=== PATIENT | female | born 2005 | race Caucasian/White ===

== ENCOUNTER 2024-03-18 11:34 | Outpatient (AMB) | payer BC, SELFPAY ==
--- NOTE | 2024-03-18 11:39 | A.OFFPC_ITS ---
Vital Signs 03/18/24 11:48 Height 5 ft 5.94 in Weight 165 lb 8 oz BMI 26.8 BP 124/72 Blood Pressure Location Lt brachial Position Sitting Respiration 12 Pulse 73 Pulse Source Pulse Oximeter Temp 98.6 F Temp Source Oral Pulse Oximetry (%) 98 Oxygen Delivery Method Room Air Intake Visit Reasons: requesting pe Intake Note: New patient visit Financial Reporting Analyst Required: No Is last menstrual period known: Yes Last menstrual period: 02/14/24 Allergies No Known Allergies Allergy (Verified 03/18/24 11:46) Tobacco use date assessed: 03/18/24 Dental Screening Dental Screen Date: 03/18/24 Did you have a dental visit in the last 12 months?: Yes Did you have a dental problem in the last 6 months where you did not have access to dental care?: No Was dental information given to patient?: Patient has dentist HPI HPI Comments History of Present Illness Details This is a 18-year-old female with a past medical history of exercise-induced asthma and acne presenting to [facility]. She transferred from [facility]. She is followed by [facility]. She is on doxycycline and topical Retin-A. Takes Karla as needed for seasonal allergies. She uses a rescue inhaler once or twice per year for exercise-induced asthma. Agreeable to screening labs including testing for HIV and other STIs. Patient is getting her 2nd hepatitis-B vaccine today. She is getting vaccinated because she was negative on titer testing for school. 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 She used to be on an oral contraceptive pill, but it caused mood swings. Referred to OBGYN for contraception consult. ROS: Constitutional: No unexplained weight loss, fever, chills, fatigue or night sweats. Eyes: No vision changes, blurry vision, double vision, eye pain, eye redness, eye discharge. ENT: No hearing loss, sneezing, congestion, runny nose or sore throat. Respiratory: No shortness of breath, cough or sputum production. Cardiovascular: No chest pain, chest pressure or chest discomfort. No palpitatio ns or pedal edema. Gastrointestinal: No anorexia, nausea, vomiting or diarrhea. No abdominal pain or blood in stool. Genitourinary: No dysuria, hematuria, urinary frequency. Neurologic: No headache, dizziness, syncope, unilateral weakness, ataxia, numbness or tingling in the extremities. Musculoskeletal: No muscle pain, back pain, joint pain or swelling. Hematologic/Lymphatics: No bleeding or bruising. No painful lymph nodes. Skin: No itching. Endocrine: No cold or heat intolerance. No polyuria or polydipsia. Psychiatric: No depression or anxiety. No SI/HI. Physical exam: Constitutional: Alert, in no distress. Head: Normocephalic. Eyes: Pupils are equal, round and reactive to light. Extraocular muscles intact. Ear, Nose and Throat: Canals clear. TMs normal. Normal nasal mucosa. No nasal d ischarge. No oral lesions. Neck: Supple, Full range of motion. No lymphadenopathy. No palpable thyroid masses. Respiratory: Clear to auscultation. Cardiovascular: S1 S2 regular. No murmurs. Gastrointestinal: Abdomen soft, non-tender, non-distended. Normal bowel sounds. No palpable masses. Neurologic: No focal neurological deficits. Symmetric patellar reflexes. Moves all extremities spontaneously. Sensation intact bilaterally. Skin: Acneiform lesions on face. Musculoskeletal: No gross deformities. Normal range of motion. Extremities: Warm and well perfused. No clubbing, cyanosis or edema. 3+ p eripheral pulses bilaterally. Psychiatric: Normal mood and affect [facility] Medical History (Updated 03/18/24 @ 13:20 by KANCHAN Page) Exercise-induced asthma Acne Routine physical examination Asthma Surgical History (Updated 03/18/24 @ 11:59 by KANCHAN Page) [place] teeth extracted Family History (Updated 03/18/24 @ 12:00 by KANCHAN Page) Father HTN (hypertension) Hypercholesteremia Cardiovascular disease Atrial fibrillation Paternal Grandmother Thyroid disorder Maternal Grandfather Liver cancer Social History (Updated 03/18/24 @ 11:52 by Angeline Mcmillan CMA) Housing: House Patient Tobacco Use Status: Never used Tobacco e-Cigarette/Vaping Use: Never Used Second Hand Smoke Exposure: No service: No Current occupational status: employed and student Current occupation: bench technician. PCT at [employer] Current occupational exposures/hazards: No Cognitive needs: No Hearing needs: No Vision needs: No Female Reproductive History Menstrual Date of last menstrual period: 02/14/24 Questionnaire PHQ-9 Over the last 2 weeks, how often have you been bothered by any of the following problems? 1. Little interest or pleasure in doing things: not at all 2. Feeling down, depressed, or hopeless: not at all 3. Trouble falling or staying asleep, or sleeping too much: several days 4. Feeling tired or having little energy: not at all 5. Poor appetite or overeating: not at all 6. Feeling bad about yourself - or that you are a failure or have let yourself or your family down: not at all 7. Trouble concentrating on things, such as reading the newspaper or watching television: not at all 8. Moving or speaking so slowly that other people could have noticed. Or the opposite - being so fidgety or restless that you have been moving around a lot more than usual: not at all 9. Thoughts that you would be better off or of hurting yourself in some way: not at all Total score: 1 Depression Screening Interpretation: Negative Depression Screening Done: Yes 75717 - PHQ-9 Billing: Yes Source: Developed by Drs. Bonilla Ojeda, Kylah Milian, Sae Irwin and colleagues, with an educational bayron from [employer]. Thrive Questionnaire Date Thrive assessed: 03/18/24 I am a: Patient What is your living situation today?: I have a steady place to live Within the past 12 months, did the food you bought not last and you didn't have the money to get more?: Never true Within the past 12 months, did you worry whether your food would run out before you got money to buy more?: Never true Do you have trouble paying for medicines?: No Do you have trouble getting transportation to medical appointments?: No Do you have trouble paying your heating and electricity bill?: No Do you have trouble taking care of your child, family member or friend?: No Do you have trouble with day-to-day activities such as bathing, preparing meals, shopping, managing finances, etc.?: No Are you currently unemployed and looking for a job?: No Are you interested in more education?: No Please select the resources that you would like help with: None Currently or been in a relationship where the following occur: No concerns reported THRIVE Score: 0 AUDIT C Alcohol Use Questionnaire (AUDIT-C) 1. How often do you have a drink containing alcohol?: Monthly or less 2. How many drinks containing alcohol do you have on a typical day when you are drinking?: 1 or 2 3. How often do you have six or more drinks on one occasion?: Never Total Score: 1 DERECK-7 AMB Questionnaire DERECK-7 Date DERECK - 7 assessed: 03/18/24 Feeling nervous, anxious, or on edge: 2 = More than half the days Not being able to stop or control worryin = Nearly every day Worrying too much about different things: 3 = Nearly every day Trouble relaxin = More than half the days Being so restless that it is hard to sit still: 2 = More than half the days Becoming easily annoyed or irritable: 3 = Nearly every day Feeling afraid as if something awful might happen: 3 = Nearly every day Total DERECK-7 score (0-4 normal; 5-9 mild; 10-14 moderate; 15-21 severe): 18 Source: Developed by Drs. Bonilla Ojeda, Kylah Milian, Sea Irwin and colleagues, with an educational bayron from [employer]. DERECK-7 Assessment Billing DERECK-7 Assessment Tool: DERECK-7 Assessment 34833 Physical exam (Primary Care) Vital Signs: Last Vital Signs Temp 98.6 F 03/18/24 11:48 Pulse 73 03/18/24 11:48 Resp 12 03/18/24 11:48 BP 124/72 03/18/24 11:48 Pulse Ox 98 03/18/24 11:48 Oxygen Delivery Method Room Air 03/18/24 11:48 BMI result Body Mass Index 26.8 Tobacco/Smoking Status: Tobacco use Status Tobacco use date assessed 03/18/24 03/18/24 11:50 Patient Tobacco Use Status Never used Tobacco 03/18/24 11:52 e-Cigarette/Vaping Use Never Used 03/18/24 11:52 PHQ-9: PHQ-9 Score PHQ-9: Total score 1 03/18/24 12:15 Depression Screening Interpretation: Negative Thrive Assessment: Date of Thrive Assessment Date Thrive assessed 03/18/24 03/18/24 12:07 Currently or been in a relationship where the following occur: No concerns reported Assessment and Plan Assessment & Plan (1) Routine physical examination: Code(s): Z00.00 - Encounter for general adult medical examination without abnormal findings Plan: Patient is seen today for a routine physical. As part of this visit we reviewed the following issues, which are considered and essential part of preventative health in this age group: - Breast Cancer screening - Annual Station Cleaning Porter exam - Blood pressure screening - Cholesterol screening - Osteoporosis prevention including calcium/vitamin D intake, weight bearing exercise & smoking cessation - Nutritional and exercise counseling - Counseling of injury prevention including fire prevention, smoke alarms and seat belt usage - Screening for depression - Prevention of and/or testing for infectious diseases - Education about skin cancer - Recommendations about immunizations - Recommendation of an eye exam - Screening for substance abuse - Genetic cancer risk screening Return in 1 year for physical exam. Orders: Orders Hepatitis B Profile Today L70.9 - Acne, unspecified, Z00.00 - Encounter for general adult medical examination without abnormal findings, Z01.84 - Encounter for antibody response examination, Z11.3 - Encounter for screening for infections with a predominantly sexual mode of transmission, Z13.6 - Encounter for screening for cardiovascular disorders Syphilis Screen Today L70.9 - Acne, unspecified, Z00.00 - Encounter for general adult medical examination without abnormal findings, Z01.84 - Encounter for an tibody response examination, Z11.3 - Encounter for screening for infections with a predominantly sexual mode of transmission, Z13.6 - Encounter for screening for cardiovascular disorders CT NG by PCR Today L70.9 - Acne, unspecified, Z00.00 - Encounter for general adult medical examination without abnormal findings, Z01.84 - Encounter for antibody response examination, Z11.3 - Encounter for screening for infections with a predominantly sexual mode of transmission, Z13.6 - Encounter for screening for cardiovascular disorders Comprehensive Met. Panel Today L70.9 - Acne, unspecified, Z00.00 - Encounter for general adult medical examination without abnormal findings, Z01.84 - Encounter for antibody response examination, Z11.3 - Encounter for screening for infections with a predominantly sexual mode of transmission, Z13.6 - Encounter for screening for cardiovascular disorders Lipid Panel Today L70.9 - Acne, unspecified, Z00.00 - Encounter for general adult medical examination without abnormal findings, Z01.84 - Encounter for antibody response examination, Z11.3 - Encounter for screening for infections with a predominantly sexual mode of transmission, Z13.6 - Encounter for screening for cardiovascular disorders Hepatitis C Antibody Today L70.9 - Acne, unspecified, Z00.00 - Encounter for general adult medical examination without abnormal findings, Z01.84 - Encounter for antibody response examination, Z11.3 - Encounter for screening for infections with a predominantly sexual mode of transmission, Z13.6 - Encounter for screening for cardiovascular disorders HIV Ab/Ag Today L70.9 - Acne, unspecified, Z00.00 - Encounter for general adult medical examination without abnormal findings, Z01.84 - Encounter for antibody response examination, Z11.3 - Encounter for screening for infections with a predominantly sexual mode of transmission, Z13.6 - Encounter for screening for cardiovascular disorders Complete Blood Count no Diff Today L70.9 - Acne, unspecified, Z00.00 - Encounter for general adult medical examination without abnormal findings, Z01.84 - Encounter for antibody response examination, Z11.3 - Encounter for screening for infections with a predominantly sexual mode of transmission, Z13.6 - Encounter for screening for cardiovascular disorders Referrals ENVIRONMENTAL ENGINEER SCIENTIST Referral Z30.9 - Encounter for contraceptive management, unspecified Coding Level of Care Code New Pt Prev Care 18-39yr([id number] Diagnoses Routine physical examination Z00.00 Additional Codes DERECK-7 Assessment Billing - DERECK-7 Assessment Tool: DERECK-7 Assessment [id number] ([id number])
[2024-03-18 11:48] VITALS: BP 124/72; PULSE 73; RESP 12; TEMP 37; O2SAT 98; BMI 26.8
== END 2024-03-18 12:17 | disposition home or self-care (01) ==
PROVIDERS: PCP Nurse Practitioner Family; Visit Provider Physician Assistant Medical
DX: Z00.00 Encounter for general adult medical examination without abnormal findings (principal)
CPT/HCPCS: 99385

== ENCOUNTER 2024-07-01 08:49 | Outpatient (REF) | payer BC, SELFPAY ==
[2024-07-01 10:32] LABS: Hematocrit 45.4 % (37.0-47.0); Mean Corpuscular Hemoglobin 27.9 pg (27.0-33.0); Mean Corpuscular Volume 84.5 fL (80.0-98.0); Mean Platelet Volume 9.7 fL (9.4-12.3); Platelet Count 288 X10*3/uL (160-400); Red Blood Count 5.37 X10*6/uL (4.20-5.50); Red Cell Distribution Width 12.3 % (11.0-16.0); White Blood Count 5.6 X10*3/uL (4.8-10.8)
[2024-07-01 11:12] LABS: Syphilis Screen Nonreactive (Nonreactive)
[2024-07-01 11:16] LABS: HIV AB/AG Nonreactive (Nonreactive); HIV Num 1 0.06 S/CO (0.00-0.99); ~HepC Num1 0.14 S/CO (0.00-0.79); ~Hepatitis C Antibody Nonreactive (Nonreactive)
[2024-07-01 11:26] LABS: Alanine Aminotransferase 29 U/L (0-31); Albumin Level 4.5 g/dL (3.5-5.0); Alkaline Phosphatase 80 U/L (39-117); Anion Gap 12 (12-20); Aspartate Amino Transferase 27 U/L (5-31); Bilirubin Total 0.5 mg/dL (0.0-1.0); Blood Urea Nitrogen 11 mg/dL (9-16); Calcium 9.4 mg/dL (8.4-10.2); Carbon Dioxide 26 mmol/L (22-29); Chloride 106 mmol/L (96-108); Cholesterol 153 mg/dL (<200); Estimated Glomerular Filt Rate > 60; Glucose Random 83 mg/dL (60-115); HDL Cholesterol 57 mg/dL (>40); LDL Cholesterol Calculated 85 mg/dL (<100); Potassium 3.9 mmol/L (3.3-5.1); Sodium 140 mmol/L (135-145); Total Protein 7.3 g/dL (6.5-8.0); Triglycerides 55 mg/dL (<150)
[2024-07-04 01:55] LABS: Hepatitis BE Antibody NON-REACTIVE (NON-REACTIVE)
== END 2024-07-01 08:50 | disposition home or self-care (01) ==
LOC: HO.HMGCLDS 08:49
PROVIDERS: PCP Physician Assistant Medical; Visit Provider Physician Assistant Medical
DX: Z00.00 Encounter for general adult medical examination without abnormal findings (principal); Z01.84 Encounter for antibody response examination; Z13.6 Encounter for screening for cardiovascular disorders; L70.9 Acne, unspecified; Z11.3 Encounter for screening for infections with a predominantly sexual mode of transmission
CPT/HCPCS: 36415; 80053; 80061; 85027; 86707; 86780; 86803; 87389

== ENCOUNTER 2024-09-16 11:17 | Outpatient (REF) | payer BC, SELFPAY ==
--- OUTSIDE RECORDS SUMMARY | 2024-09-16 13:00 | XMS_ITS | Encounter Summary ---
Author Organization [facility] Address [address] [place] [address] Phone Care Team Providers Care Buttonhole Maker Name Role Phone Carmen Del Toro MD Primary Care Provider [phone] Reason for Visit * Reason Comments Med Refill Encounter Details Date Type Department Care Team ([facility] st Contact Info) Description 08/30/2021 Refill [facility] [address] [place] [address] Sandra Chisholm MD [address] [facility] [address] [place] [address] Encounter for surveillance of contraceptive pills Social History Tobacco Use Types Packs/Day Years Used Date Smoking Tobacco: Never Assessed Comments Unknown Sex and Gender Information Value Date Recorded Sex Assigned at Female 01/18/2022 4:53 PM EDT Legal Sex Female 2:11 PM EDT Gender Identity Female 01/18/2022 4:53 PM EDT Sexual Orientation Straight 01/18/2022 4: 53 PM EDT documented as of this encounter Miscellaneous Notes * Telephone Encounter - Rosalba Conway MA - 08/31/2021 8:23 AM EST Pharm refill for Sronyx. We have not seen pt yet. PE pending for 10/18/2021. No teen release and no pt phone number. Call placed to pt and spoke with mom and patient. Would need only 1 pack until PE. Needs a covid clearance for sports too. Covid now and sibling who is also new had covid already in July. Sent activation code with AHA questions. Since new pt can not clear via questions. Apt booked for 09/17/2021 for an OV for clearance and OCP quick check for refills. Per Chart pt has been on this BC for at least a year. Did not go further back in chart. VLP since you are seeing pt will you send one pack. Pt has had a couple apts that have been r/s since July. NKDA- currently with Covid- documented in this encounter Plan of Treatment Not on file documented as of this encounter Visit Diagnoses Diagnosis Encounter for surveillance of contraceptive pills documented in this encounter Care Teams Buttonhole Maker Relationship Specialty Start Date End Date Carmen Del Toro MD [address] [place] [id number] PCP - General Pediatrics 01/06/23 documented as of this encounter
--- OUTSIDE RECORDS SUMMARY | 2024-09-16 13:01 | XMS_ITS | Clinical Summary ---
Author Organization [facility] Address [address] [place] [address] Phone Care Team Providers Care Stemhole Borer And Topper Name Role Phone Carmen Del Toro MD Primary Care Provider [phone] Allergies No known active allergies Medications cetirizine 10 MG chewable tablet Chew 10 mg once daily at approximately the same time each day. Active levonorgestrel-et hinyl estradiol 0.1-20 MG-MCG per tabletIndications :Encounter for surveillance of contraceptive pills TAKE 1 TABLET DAILY IN THE MORNING 84 tablet 3 12/15/19 23 Active Ventolin HFA 108 (90 Base) MCG/ACT inhalerIndication s:Mild exercise-induced asthma Inhale 2 puffs every 4 (four) hours as needed for wheezing. Use with spacer device 1 Units 02/23/20 23 Active Active Problems Problem Noted Date Diagnosed Date Mild exercise-induced asthma 01/18/2022 Overview (02/21/2023): Albuterol with sports. 2017 EKG WNL ( read by Cesar Kwok) ? indication Assessment & Plan (02/22/2023 10:35 AM EDT): Needs albuterol when running outside in the winter Seasonal allergies 01/18/2022 Overview (01/18/2022): Cetirizine Assessment & Plan (02/22/2023 10:30 AM EDT): Uses OTC Cetirizine very rare Flonase- no concerns today Vision problem 01/18/2022 Overview (01/18/2022): Wears glasses/contacts Fibroadenoma of left breast 01/18/2022 Overview (02/12/2022): Firm, non-tender but moderately mobile subcutaneous lesion at 6 o' clock x > 12 mos, with small L axillary node palpable. No FH BCA 01/31/22: US findings of 2.1 cm x 1.6 x 1.1 lobulated lesion with mild increase vascularity most c/w fibroadenoma, confirmed on core biopsy 02/07 with no sign of malignancy. Referral to breast surgeon to consult regarding advise on full resection declined by pt in favor of expectant management. Assessment & Plan (02/22/2023 10:36 AM EDT): Unchanged and tagged, carrying card for airport security bypass :) Dysmenorrhea treated with oral contraceptive Overview (01/18/2022): On Syronyx/Abby 0.1/20mcg EE since 2019 with good effect Assessment & Plan (02/22/2023 10:33 AM EDT): Would like to come off current OCP to see if it improved her moodiness the week before her period. If not, could change to alternal OCP form , but also suggest Mirena IUD as excellent option. Assessment & Plan (01/18/2022 5:03 PM EDT): Doing well on current OCP x 3 years, plan full 12 month refill when needed, with annual f/up at [facility] Resolved Problems Problem Noted Date Diagnosed Date Resolved Date Shaking 01/18/2022 02/21/2023 Overview (01/18/2022): with fasting episodes reported x 2 + years. No syncope. Immunizations Immunization Administration Dates Next Due COVID-19 Pfizer, gabriel-sucros e, 12+ years 01/17/2022 DTaP 09/04/2007, 5,01/30/2004,11/27,2003 HPV Vaccine 9 Valent 09/11/2018,10/26/2017 Hep A, ped/adol 09/16/2019,09/11/2018 Hep B 04/30/2004,2003,2003 HiB 11/28/2004, 4,2003,09/21 IPV 09/04/2007, 4,2003,09/21 Influenza, injectable, MDCK, preservative free, quadrivalent 04/11/2019 Influenza, injectable, quadrivalent 04/28/2015 Influenza, injectable, quadr ivalent, preservative free 04/20/2021,04/06/2020,04/17/2018,05/06,04/09/2016 MMR 09/11/2008,07/30/2004 Meningococcal Conj (Menactra) MCV4P 09/16/2019 Meningococcal Conjugate 09/25/2014 Pneumococcal Conjugate 10/29/2004,2003,2003,09/21 Tdap 09/25/2014 Varicella 09/11/2008,07/30/2004 Family History Medical History Relation Name Comments Atrial fibrillation Father Anthony Shore Hyperlipidemia Father Anthony Shore Hypertension Father Anthony Shore elevated cholesterol Father Anthony Sohre Thyroid disease Maternal Grandmother Fibrocystic breast disease Mother Leonor Shore Diabetes Mother's Sister Allergic rhinitis Sister Laura Shore Asthma Sister Laura Shore Breast cancer Neg Hx Relation Name Status Comments Father Anthony Shore Alive Maternal Grandmother Mother Leonor Shore Alive Mother's Sister Sister Laura Shore Alive Social History Tobacco Use Types Packs/Day Years Used Date Smoking Tobacco: Never Alcohol Use Standard Drinks/Week Comments Never 0 (1 standard drink = 0.6 oz pur e alcohol) Hunger/Food Answer Date Recorded In the last 12 months, did y ou or your family ever eat less than you felt you should because there wasn't enough money for food? No 02/20/2023 Stable Housing Answer Date Recorded Are you worried that in the next 2 months you may not have stable housing? No 02/20/2023 Transportation Concerns Answer Date Rec orded In the last 12 months, have you or your family ever had to go without healthcare because you didn't have a way to get there? No 02/20/2023 Hazards in Home Answer Date Recorded Think about the place you li ve. Do you have problems with any of the following? Pests (mice or roaches), mold, no/not working smoke detectors, water leaks, no window guards. No 2022 Financing Utilities Answer Date Recorde d In the last 12 months, has t he electric, gas, oil, or water company threatened to shut off your services in your home? No 02/20/2023 Safety at Home Answer Date Recorded Are you or your family worried about feeling saf e in your home? No 02/20/2023 Outside Support Answer Date Recorded Do you feel that you need mo re support from other people or programs to help you care for yourself or your family? No 02/20/2023 Understanding Health Concerns Answer Da te Recorded Do you need help understandi ng your or your child's healthcare needs (diagnosis, medications, plan, etc.)? No 02/20/2023 Financing Health Concerns Answer Date R ecorded In the last 12 months, was t here a time when your child needed to see a doctor or get medications or supplies but could not because of cost? No 02/20/2023 Missing School or Work Answer Date Andre rded Did you or your child miss s chool or work because of a health problem that could have been avoided? No 02/20/2023 Comments Unknown Sex and Gender Information Value Date Recorded Sex Assigned at Female 01/18/2022 4:53 PM EDT Legal Sex Female 2:11 PM EDT Gender Identity Female 01/18/2022 4:53 PM EDT Sexual Orientation Straight 01/18/2022 4: 53 PM EDT Last Filed Vital Signs Vital Sign Reading Time Taken Comments Blood Pressure 132/79 02/22/2023 10:01 AM EDT Pulse 88 02/22/2023 10:01 AM EDT Temperature - - Respiratory Rate - - Oxygen Saturation - - Inhaled Oxygen Concentration - - Weight 72.6 kg (160 lb) 02/22/2023 10:01 AM EDT Height 169.5 cm (5' 6.73 ) 02/22/2023 10:01 AM E DT Body Mass Index 25.26 02/22/2023 10:01 AM EDT Plan of Treatment Health Maintenance Due Date Last Done Comments Men B Vaccine (1 of 2 - Standard) 2019 Influenza Vaccines (#1) 2024 04/20/20 21, 04/06/2020, 04/11/2019, Additional history exists COVID-19 Vaccine (4 - 2023-2 5 season) 2024 01/17/2022, 12/05/2020, 11/14/2020 DTaP,Tdap,and Td Vaccines (7 - Td or Tdap) 09/25/2024 09/25/2014, 09/04/2007, 10/29/2004, Additional history exists Pneumococcal Vaccine Completed 10/29/2004, 01/30/2004, 2003, Additional history exists HIB Vaccines Completed 11/28/2004, 03/2004, 2003, Additional history exists IPV Vaccines Completed 09/04/2007, 02/2004, 2003, Additional history exists MMR Vaccines Completed 09/11/2008, 07/30/2004 Varicella Vaccines Completed 09/11/2008, 07/30/2004 HPV Vaccines Completed 09/11/2018, 10/26/2017 Hepatitis A Vaccines Completed 09/16/2019, 09/11/19 19 Meningococcal Vaccine Completed 09/16/2019, 015 Hepatitis B Vaccines Completed 12/13/2023, 04/30/2004, 2003, Additional history exists Procedures * Due to [place] [employer] law, this organization might not be sharing sensitive test results. Procedure Name Priority Date/Time Associated Diagnosis Comments CHLAMYDIA AND GONORRHEA, AMPLIFIED Routine 02/22/2023 10:39 AM EDT Encounter for screening examination for sexually transmitted disease from Last 3 Months or Most Recently Relevant to Health Maintenance Results * Due to [place] [employer] law, this organization might not be sharing sensitive test results. * Chlamydia and Gonorrhoea, Amplified (02/22/2023 10:39 AM EDT) Chlamydia Trachomatis, DNA Probe NEGATIVE (NEG) [facility] Comment: No Chlamydia Trachomatis RNA detected in this patient's sample ? (REFERENCE RANGE/NORMAL VALUE: NOT DETECTED) ? Note: This test uses principal law clerk- mediated amplification method to detect rRNA from C. Trachomatis URINE GC AMP PROBE NEGATIVE (NEG) [facility] Comment: No Neisseria Gonorrhoeae RNA detected in this patient's sample ? (REFERENCE RANGE/NORMAL VALUE: NOT DETECTED) ? NOTE: This test uses principal law clerk-mediated amplification method to detect rRNA from N.Gonorrhoeae. A negative result does not preclude infection. In the case of a negative urine result, testing of an endocervical(female) or urethral (male) specimen is recommended if there is high clinical suspicion of infection. Due to very high sensitivity of Nucleic Acid Amplification Test, false positive results may occur. Therefore, specimen handling is extremely important. In patients in whom the disease is unlikely, additional sample for testing should be considered after an initial positive result. The performance characteristics of this test have not been evaluated in children. The Aptima Combo2 assay is not intended for the evaluation of suspected sexual abuse or for other medico-legal indications. The ordering provider should assess if the patient had consensual sex without risk of sexual abuse. Consult the [facility] if needed. Contact phone number . Therapeutic failure or success cannot be determined with the Aptima Combo2 assay since nucleic acid may persist following appropriate antimicrobial therapy. The Centers for Disease Control and Prevention (CDC) recommends confirmatory retesting using culture or a different nucleic acid amplification test when positive results occur, if indicated. Testing performed or reported by [facility], a Service of [facility], [facility] [place] [address] Rashid Figueroa MD, Kitchen Hand [facility]# [id number] Urine (Urine) 02/22/2023 10: 39 AM EDT 02/22/2023 3:17 PM EDT Sandra Chisholm MD LAB MICROBIOLOGY - GENERAL [facility] TREJO Final Result [facility] from Last 3 Months or Most Recently Relevant to Health Maintenance Care Teams Stemhole Borer And Topper Relationship Specialty Start Date End Date Carmen Del Toro MD [address] [place] [id number] PCP - General Pediatrics 01/06/23
--- OUTSIDE RECORDS SUMMARY | 2024-09-16 13:01 | XMS_ITS | Encounter Summary ---
Author Organization [facility] Address [address] [place] [address] Phone Care Team Providers Care Construction Estimator Name Role Phone Carmen Del Toro MD Primary Care Provider [phone] Reason for Visit * Reason Comments Med Refill Encounter Details Date Type Department Care Team (Late st Contact Info) Description 10/14/2021 Refill [facility] [place] [address] [place] [address] Lori Montano MD [address] [place] [address] Encounter for surveillance of contraceptive pills Social [...] encounter Miscellaneous Notes * Telephone Encounter - Negrito Bryan LPN - 10/14/2021 11:34 AM EDT Pharm requesting refill of Sronyx. No PE on file. David placed to pt regarding need for PE, left message to call office and schedule PE documented in this encounter Plan of Treatment Not on file documented as of this encounter Visit Diagnoses Diagnosis Encounter for surveillance of contraceptive pills documented in this encounter Care Teams Construction Estimator Relationship Specialty Start Date End Date Carmen Del Toro MD [address] [place] [id number] PCP - General Pediatrics 01/06/23 documented as of this encounter
--- OUTSIDE RECORDS SUMMARY | 2024-09-16 13:01 | XMS_ITS ---
Author Organization [facility] Address [address] [place] [phone] Care Team Providers Care Internet Sourcer Name Role Phone MEG PENN PA-C Primary Care Provider Bernardo Mahajan Jr ALLERGIES No Known Allergies REASON FOR VISIT Patient presents today for issues going to the bathroom SOCIAL HISTORY Tobacco Use: Social History Observation Description Date Details (start date - stop date) Never Smoker NA - NA Sex Assigned At : Social History Observation Description Sex Assigned At Unknown Tobacco Use/Smoking Question Answer Notes Patient is a nonsmoker Alcohol Screen Question Answer Notes Did you have a drink containing alcohol in the p ast year? No Points 0 Interpretation Negative PROBLEMS Problem Type ICD Code Onset Dates Problem Status W/U Status Risk SNOMED Code Notes Problem Constipation, unspecified constipation type (K59.00) Active confirmed 83736769 VITAL SIGNS Temperature 98.6 degrees Fahrenheit 09/16/19 25 Blood pressure systolic 001 mm Hg 09/16/19 25 Blood pressure diastolic 01 mm Hg 025 Height 67 in 09/16/2024 Weight 174.4 lbs 09/16/2024 BMI 27.31 kg/m2 09/16/2024 Encounters Encounter Location Date Provider Diagnosis [facility] [address] [place] [phone] 09/16/2024 Bernardo Huber Jr Constipation, unspecified constipation type K59.00 ASSESSMENTS Encounter Date Diagnosis Assessment Notes Treatment Notes Treatment Clinical Notes 09/16/2024 Constipation, unspecified constipation type (ICD-10 - K59.00) PLAN OF TREATMENT Pending Test Test Name Order Date TSH reflex Free T4 09/16/2024
--- OUTSIDE RECORDS SUMMARY | 2024-09-16 13:01 | XMS_ITS | Patient Health Record ---
Author Organization [facility] Address [address] [place] [phone] Care Team Providers Care Software Configuration Manager Name Role Phone MEG PENN PA-C Primary Care Provider Bernardo Mahajan Jr ALLERGIES No Known Allergies REASON FOR REFERRAL No Information IMMUNIZATIONS Vaccine Route Administration Date Status Comme nts Influenza Unknown 04/16/2024 Administered SOCIAL HISTORY Tobacco Use: Social History Observation [...] Constipation, unspecified constipation type (K59.00) Active confirmed [id number] VITAL SIGNS Temperature 98.6 degrees Fahrenheit 09/16/2024 Blood pressure diastolic 01 mm Hg 09/16/2024 Height 67 in 09/16/2024 Blood pressure systolic 001 mm Hg 09/16/2024 Weight 174.4 lbs 09/16/2024 BMI 27.31 kg/m2 09/16/2024 Encounters Encounter Location Date Provider Diagnosis [facility] [address] [place] [phone] 09/16/2024 Bernardo Huber Jr Constipation, unspecified constipation type K59.00 ASSESSMENTS Encounter Date Diagnosis Assessment Notes Treatment Notes Treatment Clinical Notes 09/16/2024 Constipation, unspecified constipation type (ICD-10 - K59.00) PLAN OF TREATMENT Pending Test Test Name Order Date TSH reflex Free T4 09/16/2024 Insurance Providers Payer Name Payer Address Payer Phone Subscriber Number Group Number Insured Name Patient Relationship to Insured Coverage Start Date Coverage End Date [employer] [place] [address] [place] [address] [id number] HARLEY COMBS Self - patient is the insured MEDICAL (GENERAL) HISTORY Surgical History Surgery Date(Month/Year) wisdom teeth extraction
[2024-09-16 13:35] LABS: TSH reflex Free T4 0.38 uIU/mL (0.32-4.0)
== END 2024-09-16 11:18 | disposition home or self-care (01) ==
LOC: HO.10HDL 11:17
PROVIDERS: Visit Provider Internal Medicine Gastroenterology
DX: K59.00 Constipation, unspecified (principal)
CPT/HCPCS: 36415; 84443

== ENCOUNTER 2025-01-10 07:51 | Outpatient (REF) | payer BC, SELFPAY ==
--- OUTSIDE RECORDS SUMMARY | 2025-01-10 07:54 | XMS_ITS | Encounter Summary ---
Author Organization [facility] Address [address] [place] [address] Phone Care Team Providers Care Sampling Expert Name Role Phone Carmen Del Toro MD Primary Care Provider [phone] Reason for Visit * Reason Comments Med Refill Encounter Details Date Type Department Care Team ([facility] st Contact Info) Description 08/30/2021 Refill [facility] [place] [address] [place] [address] Sandra Chisholm MD [address] [facility] [address] [place] [address] Encounter for surveillance of contraceptive pills Social [...] pills documented in this encounter Care Teams Sampling Expert Relationship Specialty Start Date End Date Carmen Del Toro MD [address] [place] [id number] PCP - General Pediatrics 01/06/23 documented as of this encounter
[2025-01-10 10:47] LABS: HBS Num1 348.47 mIU/mL (0-7.99); ~Hepatitis B Surface Antibody REACTIVE (Nonreactive)
[2025-01-11 09:54] LABS: Hepatitis B Surface Ab Qnt 285 mIU/mL (> OR = 10)
[2025-01-14 17:03] LABS: Quantiferon TB Gold Plus 1 NEGATIVE (NEGATIVE); TB Test (QFT) Mitogen -Nil >10.00 IU/mL; TB Test (QFT) Nil 0.02 IU/mL
== END 2025-01-10 07:52 | disposition home or self-care (01) ==
LOC: HO.10HDL 07:51
PROVIDERS: Visit Provider Physician Assistant Medical
DX: Z11.1 Encounter for screening for respiratory tuberculosis (principal); Z01.84 Encounter for antibody response examination
CPT/HCPCS: 36415; 86317; 86480; 86706

== ENCOUNTER 2025-02-17 15:27 | Outpatient (AMB) | payer BC, SELFPAY ==
--- NOTE | 2025-02-17 15:36 | A.OFFPC_ITS ---
Vital Signs 02/17/25 15:39 Height 5 ft 5.94 in Weight 166 lb 2 oz BMI 26.9 BP 110/68 Blood Pressure Location Lt brachial Position Sitting Pulse 81 Pulse Source Pulse Oximeter Temp 98.5 F Temp Source Temporal Artery Scan Pulse Oximetry (%) 98 Oxygen Delivery Method Room Air Intake Visit Reasons: CPE Intake Note: Yoselin presents in the office today for her annual physical. Allergies No Known Allergies Allergy (Verified 02/17/25 15:38) Tobacco use date assessed: 02/17/25 Dental Screening Dental Screen Date: 02/17/25 Did you have a dental visit in the last 12 months?: Yes Did you have a dental problem in the last 6 months where you did not have access to dental care?: No Was dental information given to patient?: Patient has dentist HPI HPI Comments History of Present Illness Details This is a 18-year-old female with a past medical history of exercise- induced asthma and acne presenting for a physical exam. She is followed by [facility]. She is on topical Retin-A. Takes Karla as needed for seasonal allergies. She uses a rescue inhaler once or twice per year for exercise-induced asthma. 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 Patient will schedule annual gym exam. Given contact information for this. Endorses 3 years of chronic constipation. Seen by GI. Recommended Miralax and fiber. Without meds she has 1 BM per week. Still has constipation on them. Tried lactose and gluten free diet. She wants to try Linzess. Tdap was done at [facility] on 09/14/24. ROS: Constitutional: No unexplained weight loss, fever, chills, fatigue or night sweats. Eyes: No vision changes, blurry vision, double vision, eye pain, eye redness, eye discharge. ENT: No hearing loss, sneezing, congestion, runny nose or sore throat. Respiratory: No shortness of breath, cough or sputum production. Cardiovascular: No chest pain, chest pressure or chest discomfort. No palpitations or pedal edema. Gastrointestinal: No anorexia, nausea, vomiting or diarrhea. No abdominal pain or blood in stool. Genitourinary: No dysuria, hematuria, urinary frequency. Neurologic: No headache, dizziness, syncope, unilateral weakness, ataxia, numbness or tingling in the extremities. Musculoskeletal: No muscle pain, back pain, joint pain or swelling. Hematologic/Lymphatics: No bleeding or bruising. No painful lymph nodes. Skin: No itching. Endocrine: No cold or heat intolerance. No polyuria or polydipsia. Psychiatric: No depression or anxiety. No SI/HI. Physical exam: Constitutional: Alert, in no distress. Head: Normocephalic. Eyes: Pupils are equal, round and reactive to light. Extraocular muscles intact. Ear, Nose and Throat: Canals clear. TMs normal. Normal nasal mucosa. No nasal discharge. No oral lesions. Neck: Supple, Full range of motion. No lymphadenopathy. No palpable thyroid masses. Respiratory: Clear to auscultation. Cardiovascular: S1 S2 regular. No murmurs. Gastrointestinal: Abdomen soft, non-tender, non-distended. Normal bowel sounds. No palpable masses. Neurologic: No focal neurological deficits. Symmetric patellar reflexes. Moves all extremities spontaneously. Sensation intact bilaterally. Skin: Acneiform lesions on face. Musculoskeletal: No gross deformities. Normal range of motion. Extremities: Warm and well perfused. No clubbing, cyanosis or edema. Intact peripheral pulses bilaterally. Psychiatric: Normal mood and affect [facility] Medical History (Updated 02/17/25 @ 16:13 by KANCHAN Page) Chronic constipation Antibody response exam Screening for tuberculosis Exercise-induced asthma Acne Routine physical examination Asthma Surgical History (Updated 03/18/24 @ 11:59 by KANCHAN Page) [place] teeth extracted Family History Father HTN (hypertension) Hypercholesteremia Cardiovascular disease Atrial fibrillation Paternal Grandmother Thyroid disorder Maternal Grandfather Liver cancer Social History (Updated 02/17/25 @ 15:39 by Vivi Gomez MA) Housing: House Alcohol intake: current Patient Tobacco Use Status: Never used Tobacco e-Cigarette/Vaping Use: Never Used Second Hand Smoke Exposure: No service: No Current occupational status: employed and student Current occupation: veterinary assistant technician. PCT at [employer] Current occupational exposures/hazards: No Cognitive needs: No Hearing needs: No Vision needs: No Questionnaire PHQ-9 Over the last 2 weeks, how often have you been bothered by any of the following problems? 1. Little interest or pleasure in doing things: not at all 2. Feeling down, depressed, or hopeless: not at all 3. Trouble falling or staying asleep, or sleeping too much: not at all 4. Feeling tired or having little energy: not at all 5. Poor appetite or overeating: not at all 6. Feeling bad about yourself - or that you are a failure or have let yourself or your family down: not at all 7. Trouble concentrating on things, such as reading the newspaper or watching television: not at all 8. Moving or speaking so slowly that other people could have noticed. Or the opposite - being so fidgety or restless that you have been moving around a lot more than usual: not at all 9. Thoughts that you would be better off or of hurting yourself in some way: not at all Total score: 0 Depression Screening Interpretation: Negative Depression Screening Done: Yes 02005 - PHQ-9 Billing: Yes Source: Developed by Drs. Bonilla Ojeda, Kylah Milian, Sea Irwin and colleagues, with an educational bayron from [employer]. Thrive Questionnaire Date Thrive assessed: 02/17/25 I am a: Patient What is your living situation today?: I have a steady place to live Within the past 12 months, did the food you bought not last and you didn't have the money to get more?: Never true Within the past 12 months, did you worry whether your food would run out before you got money to buy more?: Never true Do you have trouble paying for medicines?: No Do you have trouble getting transportation to medical appointments?: No Do you have trouble paying your heating and electricity bill?: No Do you have trouble taking care of your child, family member or friend?: No Do you have trouble with day-to-day activities such as bathing, preparing meals, shopping, managing finances, etc.?: No Are you currently unemployed and looking for a job?: No Are you interested in more education?: No Please select the resources that you would like help with: None Currently or been in a relationship where the following occur: No concerns reported THRIVE Score: 0 AUDIT C Alcohol Use Questionnaire (AUDIT-C) 1. How often do you have a drink containing alcohol?: Monthly or less 2. How many drinks containing alcohol do you have on a typical day when you are drinking?: 1 or 2 3. How often do you have six or more drinks on one occasion?: Never Total Score: 1 DERECK-7 AMB Questionnaire DERECK-7 Date DERECK - 7 assessed: 02/17/25 Feeling nervous, anxious, or on edge: 2 = More than half the days Not being able to stop or control worryin = Several days Worrying too much about different things: 2 = More than half the days Trouble relaxin = More than half the days Being so restless that it is hard to sit still: 3 = Nearly every day Becoming easily annoyed or irritable: 3 = Nearly every day Feeling afraid as if something awful might happen: 2 = More than half the days Total DERECK-7 score (0-4 normal; 5-9 mild; 10-14 moderate; 15-21 severe): 15 Source: Developed by Drs. Bonilla Ojeda, Kylah Milian, Sea Irwin and colleagues, with an educational bayron from [employer] DERECK-7 Assessment Billing DERECK-7 Assessment Tool: DERECK-7 Assessment 68162 Physical exam (Primary Care) Vital Signs: Last Vital Signs Temp 98.5 F 02/17/25 15:39 Pulse 81 02/17/25 15:39 BP 110/68 02/17/25 15:39 Pulse Ox 98 02/17/25 15:39 Oxygen Delivery Method Room Air 02/17/25 15:39 BMI result Body Mass Index 26.9 Tobacco/Smoking Status: Tobacco use Status Tobacco use date assessed 02/17/25 02/17/25 15:42 Patient Tobacco Use Status Never used Tobacco 02/17/25 15:42 e-Cigarette/Vaping Use Never Used 02/17/25 15:42 PHQ-9: PHQ-9 Score PHQ-9: Total score 0 02/17/25 16:05 Depression Screening Interpretation: Negative Thrive Assessment: Date of Thrive Assessment Date Thrive assessed 02/17/25 02/17/25 15:42 Currently or been in a relationship where the following occur: No concerns reported Coding Level of Care Code Est Pt Prev Care 18-39y(10783) Diagnoses Routine physical examination Z00.00 Chronic constipation K59.09 Additional Codes DERECK-7 Assessment Billing - DERECK-7 Assessment Tool: DERECK-7 Assessment 57163 ([id number]) PHQ-9 - 52639 - PHQ-9 Billing: Yes ([id number]) Assessment & Plan Assessment & Plan (1) Routine physical examination: Code(s): Z00.00 - Encounter for general adult medical examination without abnormal findings Category: Medical (2) Chronic constipation: Code(s): K59.09 - Other constipation Category: Medical Plan Patient is seen today for a routine physical. As part of this visit we reviewed the following issues, which are considered and essential part of preventative health in this age group: - Breast Cancer screening - Annual Bacteriologist Pharmaceutical exam - Blood pressure screening - Cholesterol screening - Osteoporosis prevention including calcium/vitamin D intake, weight bearing exercise & smoking cessation - Nutritional and exercise counseling - Counseling of injury prevention including fire prevention, smoke alarms and seat belt usage - Screening for depression - Prevention of and/or testing for infectious diseases - Education about skin cancer - Recommendations about immunizations - Recommendation of an eye exam - Screening for substance abuse Trial of Linzess for constipation. Side effects reviewed. Referred back to gastroenterology. Continue fiber supplement, adequate water intake, regular exercise. Follow up in 3 months for recheck. Orders: Orders Quantiferon TB Gold Plus 1 01/10/25 Z01.84 - Encounter for antibody response examination, Z11.1 - Encounter for screening for respiratory tuberculosis Hepatitis B Surface Ab Qnt 01/10/25 Z01.84 - Encounter for antibody response examination, Z11.1 - Encounter for screening for respiratory tuberculosis Hepatitis B Surface Antibody 01/10/25 Z01.84 - Encounter for antibody response examination, Z11.1 - Encounter for screening for respiratory tuberculosis Referrals CONDENSER OPERATOR Referral Z01.419 - Encounter for gynecological examination (general) (routine) without abnormal findings Gastroenterology Referral K59.09 - Other constipation Medications: New linaclotide (Linzess) 145 mcg PO DAILY 90 caps 0RF
[2025-02-17 15:39] VITALS: BP 110/68; PULSE 81; TEMP 36.9; O2SAT 98; BMI 26.9
--- OUTSIDE RECORDS SUMMARY | 2025-02-17 15:46 | XMS_ITS | Encounter Summary ---
Author Organization [facility] Address [address] [place] [address] Phone Care Team Providers Care Land Leasing Examiner Name Role Phone Carmen Del Toro MD Primary Care Provider [phone] Reason for Visit * Reason Comments Med Refill Encounter Details Date Type Department Care Team ([facility] st Contact Info) Description 08/30/2021 Refill [facility] [address] [place] [address] Sandra Chisholm MD [address] [facility] [address] [place] [address] Encounter for surveillance of contraceptive pills Social [...] pills documented in this encounter Care Teams Land Leasing Examiner Relationship Specialty Start Date End Date Carmen Del Toro MD [address] [place] [id number] PCP - General Pediatrics 01/06/23 documented as of this encounter
--- OUTSIDE RECORDS SUMMARY | 2025-02-17 15:46 | XMS_ITS | Clinical Summary ---
Author Organization [facility] Address [address] [place] [address] [place] [id number] Phone Care Team Providers Care Pharmaceutical Specialty Representative Name Role Phone Pcp, Unknown Unavailable Unavailable Pcp, Not Required Primary Care Provider Unavaila ble Allergies No known active allergies Medications albuterol (VENTOLIN HFA) 90 mcg/actuation inhaler Inhale 2 puffs into the lungs. 3 Active cetirizine (ZYRTEC) 10 MG chewable tablet Take 10 mg by mouth. Active doxycycline monohydrate (MONODOX) 100 MG capsule Take 1 capsule by mouth every morning. 4 Active tretinoin (RETIN-A) 0.025 % cream APPLY A PEA SIZED AMOUNT AT BEDTIME. 4 Active diazePAM (VALIUM) 5 MG tablet Take 1 tablet (5 mg total) by mouth once for 1 dose. Take prior to procedure 1 tablet 4 Active Hospital, Clinic, or Other Facility Administered Medication Ordered Dose Route Frequency Start Date End Date Status levonorgestreL (MIRENA) 21 mcg/24 hr (8 yrs) 52 mg intrauterine device 1 each 1 each Utrn Every 8 years 04/17/2024 Active Active Problems Problem Noted Date Diagnosed Date Sore throat 02/25/2024 Encounters Date Type Department Care Team Description 12/25/2024 8:00 AM EDT Office Visit [facility] [address] [place] [address] [phone] Ange Orozco PA-C Closed displaced fracture of distal phalanx of right thumb with routine healing, subsequent encounter (Primary Dx) 12/25/2024 7:55 AM EDT - 12/25/2024 11:59 PM EDT Hospital Encounter [facility] [address] [place] [address] Ange Orozco PA-C Discharge Disposition: Home or Self Care 12/02/2024 9:30 AM EDT Office Visit [facility] [address] [place] [id number] South Vasquez PA-C Closed displaced fracture of distal phalanx of right thumb, initial encounter (Primary Dx) 12/01/2024 10:02 AM EDT - 12/01/2024 11:59 PM EDT Hospital Encounter [facility] [address] [place] [phone] Cassie Padilla, [place] Discharge Disposition: Home or Self Care 12/01/2024 9:40 AM EDT Office Visit [facility] at [address] [phone] Cassie Padilla CNP Pain of right thumb (Primary Dx); Closed nondisplaced fracture of distal phalanx of right thumb, initial encounter from Last 3 Months Social History Tobacco Use Types Packs/Day Years Used Date Smoking Tobacco: Never Smokeless Tobacco: Never Tobacco Cessation:Counseling Given: Not Answered Alcohol Use Standard Drinks/Week Comments Never 0 (1 standard drink = 0.6 oz pur e alcohol) Education Answer Date Recorded Are you interested in more education? Not on tamir e 11/18/2022 Are you concerned about learning? Not on file 11/18/2022 No 11/18/2022 No 11/18/2022 Digital Access Answer Date Recorded No 12/19/2022 No 12/19/2022 Reliable internet access at home? Not on file 12/19/2022 Device with a working camera? Not on file Comments No Sex and Gender Information Value Date Recorded Sex Assigned at Not on file Legal Sex Female 8:44 PM EDT Gender Identity Not on file Sexual Orientation Not on file Last Filed Vital Signs Vital Sign Reading Time Taken Comments Blood Pressure 126/85 12/01/2024 9:55 AM EDT Pulse 69 12/01/2024 9:55 AM EDT Temperature 36.8 C (98.2 F) 12/01/2024 9:55 AM EDT Respiratory Rate 16 12/01/2024 9:55 AM EDT Oxygen Saturation 99% 12/01/2024 9:55 AM EDT Inhaled Oxygen Concentration - - Weight 75.3 kg (166 lb) 04/03/2024 2:56 PM EDT Height 167.6 cm (5' 6 ) 04/03/2024 2:56 PM EDT Body Mass Index 26.79 04/03/2024 2:56 PM EDT Plan of Treatment Health Maintenance Due Date Last Done Comments DEPRESSION SCREENING 2015 MENINGOCOCCAL VACCINES (B) (1 of 2 - Standard) 2019 ADOLESCENT UNIVERSAL LIPID SCREENING 2020 CHLAMYDIA SCREENING 09/16/2020 09/16/2019 HEPATITIS C SCREENING 2021 HIV ONE-TIME SCREENING (18-65 YEARS) 2021 COVID-19 VACCINE ( season) 2024 01/17/2022, 12/05/2020, 11/14/2020 PAP SMEAR 2024 SMOKING Hx and SMOKELESS TOBACCO SCREENING 04/17/2025 04/17/2024 IUD 04/17/2032 04/17/2024 Adult Td,Tdap Booster 09/14/2034 09/14/2024, 015 COMBINED DTaP,Tdap,Td (8 - Td or Tdap) 09/14/2034 09/14/2024, 09/25/2014, 09/04/2007, Additional history exists PNEUMOCOCCAL VACCINES (0-49 years) Aged Out 10/29/2004, 01/30/2004, 2003, Additional history exists No longer eligible based on patient's age to complete this topic HIB VACCINES Completed 11/28/2004, 03/2004, 2003, Additional history exists MMR VACCINES Completed 09/11/2008, 07/30/2004 HPV VACCINES Completed 09/11/2018, 10/26/2017 HEPATITIS A VACCINES Completed 09/16/2019, 09/11/19 19 MENINGOCOCCAL VACCINES (ACWY) Completed 09/16/2019, 09/25/2014 Medical Devices Implanted Type Area Archeology Faculty Member Device Identifier Shelf Expiration Date Model / Serial / Lot Iud Implanted: (Quantity not on file) Intrauterine Device Procedures Procedure Name Priority Date/Time Associated Diagnosis Comments XR FINGER 2 OR MORE VIEWS (RIGHT) Routine 12/25/2024 8:01 AM EDT Closed displaced fracture of distal phalanx of right thumb, initial encounter XR FINGER (THUMB) STRESS VIEWS (RIGHT) Urgent/patient waiting 12/01/2024 10:09 AM EDT Pain of right thumb CHLAMYDIA TRACHOMATIS AND NEISSERIA GONORRHOEAE NUCLEIC ACID DETECTION Routine 09/16/2019 5:25 PM EST Encounter for routine child health examination without abnormal findings from Last 3 Months or Most Recently Relevant to Health Maintenance Results * XR FINGER 2 OR MORE VIEWS (RIGHT) (12/25/2024 8:01 AM EDT) Narrative SYSTEMGENERATED, DOCUMENTATION - 12/25/2024 8:01 AM EDT This image report has been auto-finalized and has not been read by a Radiologist. Interpretation has been included in the provider encounter note for this date of service. Ange Orozco PA-C IMG XR UPPER EXTREMI TY Final Result * XR FINGER (THUMB) STRESS VIEWS (RIGHT) (12/01/2024 10:09 AM EDT) Anatomical Region Laterality Modality Hand Right Computed Radiogr aphy 12/01/2024 10:2 8 AM EDT Impressions 12/01/2024 10:58 AM EDT FINDINGS/IMPRESSION: Minimally displaced oblique extra-articular fracture at the base of the distal phalanx of the thumb. The fracture line extends dorsally to the level of the nail bed and correlation for nail bed injury is recommended (to exclude an open fracture). Normal joint spaces. Moderate surrounding soft tissue edema. ATTESTATION: I, Bonilla Rico as teaching physician, have reviewed the images for this case and if necessary edited the report originally created by Rola Aguilera MD. Narrative 12/01/2024 10:58 AM EDT XR FINGER (THUMB) STRESS VIEWS (RIGHT) Referring clinician's provided indication for this examination in Epic: Pain; Trauma COMPARISON: None Procedure Note Bonilla Rico MD - 12/01/2024 XR FINGER (THUMB) STRESS VIEWS (RIGHT) Referring clinician's provided indication for this examination in Epic:Pain; Trauma COMPARISON: None IMPRESSION: FINDINGS/IMPRESSION: Minimally displaced oblique extra-articular fracture at the base of thedistal phalanx of the thumb. The fracture line extends dorsally to thelevel of the nail bed and correlation for nail bed injury is recommended(to exclude an open fracture). Normal joint spaces. Moderate surroundingsoft tissue edema. ATTESTATION: I, Bonilla Rico as teaching physician, have reviewed theimages for this case and if necessary edited the report originally createdby Rola Aguilera MD. us Cassie Padilla [facility] IMG XR UPPER EXTREMITY Final Result * Chlamydia Trachomatis and Neisseria Gonorrhoeae Nucleic Acid Detection (09/16/2019 5:25 PM EST) CHLAMYDIA TRACHOMATIS Not Detected Not Detected [facility] NEISERIA GONORRHOEAE Not Detected Not Detected [facility] SPECIMEN TYPE URINE [facility] Urine (Urine) 09/16/2019 5:2 5 PM EST 09/16/2019 5:26 PM EST us Maribell Ferro MD NON CULTURE MICROBIOLOG Y Final Result [facility] [address] [place] [address] from Last 3 Months or Most Recently Relevant to Health Maintenance Insurance [facility] OUT STATE PPO BLUE [employer]OSS OUT OF [facility] PPO [employer] [place] OUT OF STATE PPO [place] [place] OUT OF STATE PPO [employer] [place] OUT OF STATE PPO [place] [place] OUT OF STATE PPO OUT [facility] [address] [place] [address] OUT STATE PPO BL[place] OUT OF STATE PPO [place] OUT OF STATE PPO [place] OUT OF STATE PPO PPO OUT STATE PPO [facility] OUT OF STATE PPO [facility] OUT [facility] PPO Care Teams Pharmaceutical Specialty Representative Relationship Specialty Start Date End Date Pcp, Unknown PCP - Pediatrics 11/10/20 Pcp, Not Required [address] [place] [address] PCP - General 02/25/24 Additional Source Comments The information contained in this document represents components of the legal health record. It is not the complete legal health record.[facility]
--- OUTSIDE RECORDS SUMMARY | 2025-02-17 15:46 | XMS_ITS | Patient Health Record ---
Author Organization [facility] Address [address] [place] [address] Care Team Providers Care Telemarketer Name Role Phone MEG PENN PA-C Primary Care Provider Bernardo Mahajan Jr Allergies No Known Allergies Results Component Value Reference Range Notes TSH reflex Free T4 Reviewed date:09/17/2024 09:19:12 PM Interpretation: Performing Lab:[facility], [address] [place] [id number] Notes/Report: TSH reflex Free T4 0.38 0.32-4.0 uIU/mL Reason For Referral No Information Immunizations Vaccine Route Administration Date Status Comme nts Influenza Unknown 04/16/2024 Administered Social History Tobacco Use: Social History Observation Description Date Details (start date - stop date) Never Smoker NA - NA Tobacco Use/Smoking Question Answer Notes Patient is a nonsmoker Alcohol Screen Question Answer Notes Did you have a drink containing alcohol in the p ast year? No Points 0 Interpretation Negative Problems Problem Type SNOMED Code ICD Code Onset Dates Problem Status W/U Status Risk Notes Problem 63111622 Constipation, unspecified constipation type (K59.00) Active confirmed Problem 479314173 Gastroesophageal reflux disease, unspecified whether esophagitis present (K21.9) Active confirmed Vital Signs Temperature 98.6 degrees Fahrenheit 09/16/2024 Blood pressure diastolic 01 mm Hg 09/16/2024 Height 67 in 09/16/2024 Blood pressure systolic 001 mm Hg 09/16/2024 Weight 174.4 lbs 09/16/2024 BMI 27.31 kg/m2 09/16/2024 Encounters Encounter Location Date Provider Diagnosis [facility] [address] [place] [address] 09/16/2024 Bernardo Huber Jr Constipation, unspecified constipation type K59.00 and Gastroesophageal reflux disease, unspecified whether esophagitis present K21.9 [facility] [address] [place] [address] 09/17/2024 Bernardo Huber Jr Assessments Encounter Date Diagnosis (ICD Code) Assessment Notes Treatment Notes Treatment Clinical Notes Section Notes 09/16/2024 Constipation, unspecified constipation type (ICD-10 - K59.00) We discussed her symptoms today. We recommended continued use of fiber supplementation in her diet and in the form of Metamucil. She can also use MiraLAX for her symptoms of constipation. We discussed that this can be used fairly liberally. Her reflux symptoms are under good control with diet and she will continue this. She will have further evaluation with thyroid testing and let us know how she is doing in a month. 09/16/2024 Gastroesophageal reflux disease, unspecified whether esophagitis present (ICD-10 - K21.9) We discussed her symptoms today. We recommended continued use of fiber supplementation in her diet and in the form of Metamucil. She can also use MiraLAX for her symptoms of constipation. We discussed that this can be used fairly liberally. Her reflux symptoms are under good control with diet and she will continue this. She will have further evaluation with thyroid testing and let us know how she is doing in a month. Plan Of Treatment No Information Insurance Providers Payer Name Payer Address Payer Phone Subscriber Number Group Number Insured Name Patient Relationship to Insured Coverage Start Date Coverage End Date [place] [id number] [place] [address] [id number] HARLEY COMBS Self - patient is the insured Medical (General) History Surgical History Surgery Date(Month/Year) wisdom teeth extraction
== END 2025-02-17 16:24 | disposition home or self-care (01) ==
LOC: HO.HMCFM 15:28
PROVIDERS: PCP Physician Assistant Medical; Visit Provider Physician Assistant Medical
DX: Z00.00 Encounter for general adult medical examination without abnormal findings (principal); K59.09 Other constipation

== ENCOUNTER → 2025-02-17 15:27 | Outpatient (BNVA) | payer BC, SELFPAY | PROVIDERS: PCP Physician Assistant Medical; Visit Provider Physician Assistant Medical | DX: Z00.00 Encounter for general adult medical examination without abnormal findings (principal); Z13.31 Encounter for screening for depression; Z13.30 Encounter for screening examination for mental health and behavioral disorders, unspecified; K59.09 Other constipation | CPT/HCPCS: 96127 ==